=== PATIENT | female | born 1930 | race Caucasian/White ===

== ENCOUNTER 2016-12-27 13:31 | Inpatient (IN) | payer MEDICARE ==
--- NOTE | ~2016-12-27 | EKG ---
PATIENT: ANTONIO FRIEND UNIT #: [id number] Ventricular Rate: 65 BPM Atrial Rate: 65 BPM P-R Interval: 170 ms QRS Duration: 90 ms Q-T Interval: 404 ms QTC Calculation(Bezet): 420 ms P [place]: 43 degrees Calculated R [place]: 31 degrees Calculated T [place]: 48 degrees Diagnosis Line: Normal sinus rhythm Diagnosis Line: Normal ECG Diagnosis Line: When compared with ECG of 23-DEC-2016 09:50, Diagnosis Line: Criteria for Inferior infarct are no longer Diagnosis Line: Present Diagnosis Line: Confirmed by LAKSHMI QUEVEDO MD ([id number]) on 12/28/2016 Diagnosis Line: 7:19:23 AM INTERPRETING MD: SAE MICHELLE
--- NOTE | ~2016-12-27 | OR ---
Unit #: [id number] #: [id number] Patient: ANTONIO FRIEND [id number] [address] [address] [id number] MR#: [id number] NAME: ANTONIO FRIEND ROOM: 468 Date of Procedure: 12/30/2016 Admission Date: 12/27/2016 Surgeon: Franklin Song M.D. : 1930 Attending Physician: Diana Zhang M.D. Primary Care Physician: Ministerio Antoine Jr., M.D. OPERATIVE REPORT PREOPERATIVE DIAGNOSIS Right shoulder rotator cuff arthropathy. POSTOPERATIVE DIAGNOSIS Right shoulder rotator cuff arthropathy. PROCEDURE PERFORMED Right reverse total shoulder arthroplasty. LUMBER SORTER Tristan Segura CFA. ANESTHESIA General endotracheal. COMPLICATIONS None. SPECIMENS None. DRAINS 10-[place] Hemovac. SURGICAL IMPLANTS Jennifer reverse total shoulder arthroplasty system with Palacos R+G cement, size 10 smooth humeral stem, standard trabecular metal baseplate with 2 screws, 36 mm glenosphere, +3 mm offset polyethylene liner. INDICATION FOR PROCEDURE Ms. Friend is a pleasant 86-year-old female with end-stage rotator cuff arthropathy of the right shoulder. She had failed conservative treatment with multiple cortisone injections. She wished to proceed with surgical intervention. It was felt reverse total shoulder arthroplasty provided most relief and return of function. She understood the risks associated with surgery with her age and medical comorbidities. She wished to proceed. Risks, benefits, and alternatives of the surgery were discussed. Informed consent was obtained. Risks include, but not limited to, infection, bleeding, nerve injury, blood clots, risks associated with anesthesia, and possibly . DESCRIPTION OF PROCEDURE Unit #: [id number] #: [id number] Patient: ANTONIO FRIEND On 12/30/2016, the patient was seen in preoperative holding area, where her surgical site was marked. Preoperative antibiotics were received. H and P and consent updated. The patient was taken to the operating room and placed on operative table and provided general anesthesia. She was moved into the beach chair position. All bony prominences were well padded. Right upper extremity was prepped and draped in typical sterile fashion. Time-out performed confirming the correct surgical site and procedure. At this point, a standard deltopectoral approach was performed to the right glenohumeral joint. Significant retraction of the rotator cuff and subscapularis noted. The remainder of it was released off the lesser tuberosity. It was significantly atrophied and retracted. The cephalic vein had been mobilized with the deltoid muscle. The articular cartilage was completely worn down on the humeral head and glenoid. The biceps had already been torn. The shoulder was dislocated. Starting reamer placed down the canal of the humerus. Sequential reaming up to 12 mm performed. Cutting jig placed on the reamer at approximately 20 degrees of retroversion. The humeral head cut was made. Serial broaching performed followed by placement of the trial. Focus was now placed on the glenoid. Retractors placed and the soft tissue debrided around the glenoid. Central pin placed in a 10-degree cephalad direction. Serial reaming performed over this. Next, the base plate was placed after healthy bleeding bone base noted. Two locking screws placed with excellent purchase for security. The Glenosphere was placed and malleted into position. It was noted to be stable and checked circumferentially. Based on the current humerus cut, it was felt to be a little bit tight and 2 more mm was resected off the humerus. At this point, the trial stem was placed again and the shoulder was reduced. Focus was now placed on cementing the final stem. The patient was extremely osteoporotic and felt cementing would provide the most security and prevention of possible fracture with a press-fit stem. Cement was mixed on the back table. Restrictor placed. Canal prepared and thoroughly irrigated. It was suctioned dried. Cement was packed into the canal followed by placement of the stem. Excess cement removed circumferentially around the proximal aspect of the humerus. After approximately 12 minutes, cement had hardened. A 0 mm trial was placed and the shoulder was reduced. It was felt that a 3 mm was more appropriate. The final 3 mm poly insert was placed and stabilized. The shoulder was reduced. It was taken through a full range of motion and noted to be stable. Appropriate tension on the surrounding soft tissues noted. The remainder of the 3 L normal saline containing bacitracin pulsed through the wound. The atrophied soft tissue including the supraspinatus and subscapularis were felt to be under significant tension to be able to repair. They were left alone. A subacromial drain was placed in standard fashion. The deltopectoral groove repaired with 0 Vicryl followed by 2-0 Vicryl for subcutaneous tissues and a running 3-0 Monocryl subcuticular skin stitch. Dermabond, Telfa, Tegaderm placed followed by a sling immobilizer. The patient was subsequently awakened from general anesthesia in stable condition and taken to the PACU postoperatively. POSTOPERATIVE PLAN The patient will be nonweightbearing on the right upper extremity. She can have elbow and wrist motion and pendulums. She will be on Lovenox while in the hospital for DVT prophylaxis. She will be on standard antibiotics. No complications encountered during the surgical procedure. Unit #: [id number] #: [id number] Patient: ANTONIO FRIEND Dictated by.Salva Canchola/emory TD: 12/30/2016 23:45 JOB #: [id number] OPERATIVE REPORT X X PROCEDURE OPERATIVE NOTE
--- NOTE | ~2016-12-27 | HP ---
Unit #: [id number] #: [id number] Patient: ANTONIO FRIEND [id number] [address] [place], [place] [address] [id number] I MR#: [id number] NAME: ANTONIO FRIEND ROOM: 230 Age: 86 Sex: F Admission Date: 12/27/2016 : 1930 Attending Physician: Chauncey Oliveira M.D. Primary Care Physician: Ministerio Antoine Jr., M.D. HISTORY AND PHYSICAL CHIEF COMPLAINT Positive blood cultures. HISTORY OF PRESENT ILLNESS The patient is an 86-year-old female who had a preprocedure screening on the 23 of December for the right shoulder arthroplasty. The patient had an abnormal UA with 3+ leukocyte esterase, positive nitrite and 100 to 200 urine WBC and 4+ urine bacteria with the urine culture positive for the E. coli ESBL. The patient was brought to the hospital for IV antibiotics. The patient's surgery has been canceled for tomorrow and rescheduled for , 12/30/2016. The patient denies any fever, chills, nausea or vomiting. The patient is complaining of back pain and shoulder pain. The patient has a history of hydronephrosis with a stent placed back in last year and is status post removal. The patient denies any urinary complaints. The patient denies any urgency or frequency. The patient denies any recent history of fall or confusion. The patient is hard of hearing and hears only from the left ear and history is obtained by speaking to the patient's son at the bedside. 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 PAST SURGICAL HISTORY Excision of ruptured ovary, hysterectomy, thyroidectomy, bladder repair, cardia cath, laser surgery, left and right cataract extraction, left knee replacement, kidney stone retrieval. SOCIAL HISTORY The patient is accompanied by her son. The patient denies tobacco, illicit drug abuse. The patient drinks vodka and orange juice, one daily. FAMILY HISTORY Lung cancer and breast cancer. ALLERGIES Morphine. CURRENT MEDICATIONS 1. Calcium. 2. Lisinopril. Unit #: [id number] #: [id number] Patient: ANTONIO FRIEND 3. Levothyroxine. 4. Pantoprazole. 5. Lexapro. 6. Hydrocodone. 7. Hydrochlorothiazide. 8. Lipitor. 9. Fiber. REVIEW OF SYSTEMS A 14-point review of systems was performed and only pertinent positives are described above and remaining are negative. PHYSICAL EXAMINATION GENERAL APPEARANCE: The patient is lying on the bed, not in acute distress. VITAL SIGNS: Temperature 98.1. Pulse 71. Respiration 16. Sating 99% at room air. Blood pressure 155/97. HEENT: Head: Atraumatic, normocephalic. Pupils equal, round and reacting to light and accommodation. Moist mucous membranes. LYMPHATIC: No lymphadenopathy. LUNGS: Clear to auscultation bilaterally. HEART: Regular rate and rhythm. ABDOMEN: Soft. Positive bowel sounds. EXTREMITIES: Trace pedal edema without cyanosis or clubbing. NEUROLOGIC: Alert, awake, oriented. No gross focal motor deficit. MUSCULOSKELETAL: Decreased range of motion with pain. BACK: No CVA tenderness. DIAGNOSTIC STUDIES LABORATORY: Data from the is BUN 26, creatinine 0.7, sodium 137, potassium 4, chloride 98, bicarb 32, calcium 9.6, total protein 5.8, albumin 3.9, AST 25, ALT 24, alkaline phosphatase 22. INR is one. WBC 5.7, hemoglobin 14.3, hematocrit 43.2, platelets 142. UA shows 3+ leukocyte esterase, positive nitrite, WBC 100 to 200, urine bacteria 4+, and urine culture is positive for E. coli ESBL. ASSESSMENT 1. ESBL E. coli UTI. 2. Osteoarthritis. 3. Hyperlipidemia. PLAN To admit the patient (1) , continue with IV antibiotics with Merrem and check the blood cultures to rule out sepsis. The patient's surgery has been rescheduled to for right shoulder arthroplasty. Repeat the labs again and further recommendations will follow. Dictated by Slava Santiago TD: 12/27/2016 14:07 JOB #: [id number] Unit #: [id number] #: [id number] Patient: OBERHAUSEN,ANTONIO HISTORY AND PHYSICAL X X HISTORY AND PHYSICAL
--- NOTE | ~2016-12-27 | CR230 ---
[facility] A Service of [facility] & [facility] RADIOLOGY TEXT RESULTS PATIENT: ANTONIO FRIEND LOCATION: [facility] 468-01 : 32 UNIT #: [id number] AGE: [address]: Diana Zhang MD SEX: F ORDER DR: [id number] [facility] [address] [facility] [place], [place] [address] [id number] I MR#: [id number] Acc #: [id number] NAME: ANTONIO FRIEND : 1930 SEX: F STUDY DATE/TIME: 12/30/2016 11:29 UNIT: [facility] ROOM: [facility] STUDY DESCRIPTION: CR Shoulder Min 2 View Rt Attending Physician: Diana Zhang M.D. Ordering Physician: Franklin Song M.D. Primary Care Physician: Ministerio Antoine Jr., M.D. MEDICAL IMAGING REPORT This report is preliminary unless electronic signature is present EXAM Right shoulder 2 views HISTORY Status post right total shoulder arthroplasty. FINDINGS The exam is compared to the previous studies of 12/23 and the patient has undergone a right shoulder arthroplasty. Position and alignment of the prosthetic elements appears as expected. CONCLUSION Satisfactory postop appearance following right total shoulder arthroplasty. Dictated by... Tristan Angelo M.D. THIS IS AN ELECTRONICALLY VERIFIED REPORT Tristan Angelo M.D. at 12/30/2016 4:30 PM JAKE/chinedu TD: 12/30/2016 14:02 JOB #: [id number] MEDICAL IMAGING REPORT COPY
--- NOTE | ~2016-12-27 | DS ---
Unit #: [id number] #: [id number] Patient: ANTONIO FRIEND [id number] [address] [address] [id number] MR#: [id number] NAME: ANTONIO FRIEND ROOM: 468 Age: 86 Sex: F Admission Date: 12/27/2016 : 1930 Discharge Date: 12/31/2016 Attending Physician: Diana Zhang M.D. Primary Care Physician: Ministerio Antoine Jr., M.D. DISCHARGE SUMMARY REVISED REPORRT DIAGNOSIS ON ADMISSION Acute UTI. DIAGNOSES ON DISCHARGE 1. Acute Escherichia coli extended spectrum beta-lactamase urinary tract infection. 2. Right rotator cuff arthropathy status post reverse total shoulder arthroplasty (TSA). 3. Hyperlipidemia. 4. Degenerative joint disease. 5. Chronic low back pain. 6. Overactive bladder. 7. Gastroesophageal reflux disease. 8. Hearing loss. 9. Hyperlipidemia. 10. Osteopenia. 11. Neuropathy. 12. Macular degeneration. CONSULTATIONS Dr. Song in surgical consultation. DIAGNOSTIC STUDIES LABS: The patient's creatinine is 0.6, sodium 141, potassium 4.1. WBC is 4.3, hemoglobin 10.3, platelet count 110. Blood cultures did not reveal any growth so far. Urine culture revealed E-coli ESBL. IMAGING: Right shoulder x-ray revealed satisfactory postop appearance following right total shoulder arthroplasty. HOSPITAL COURSE This 86-year-old patient was admitted to the hospital with UTI. Details are as per admission H and P. Acute E-coli ESBL UTI. The patient was treated with IV Merrem and is afebrile. Blood cultures are negative. Rotator cuff arthropathy. The patient was scheduled as an outpatient for surgery. Dr. Song saw the patient in consultation, and the patient underwent surgery and has tolerated it well. Today, the patient is comfortable, is not in any acute distress. She will go to rehab. Unit #: [id number] #: [id number] Patient: ANTONIO FRIEND PHYSICAL EXAMINATION VITAL SIGNS: Vital signs reveal temperature of 98.1, pulse 59 per minute, respiratory rate 18 per minute and blood pressure 154/54. HEENT: Examination revealed no conjunctival congestion. Sclera is nonicteric. NECK: Neck is supple. Trachea is central. RESPIRATORY: Examination revealed breath sounds equal bilaterally. There are no wheezes or crackles. HEART: Regular rate and rhythm. S1, S2. ABDOMEN: Abdomen is soft, nontender. Bowel sounds are present in all 4 quadrants. SKIN: Skin is warm and dry. CONDITION Stable. ACTIVITIES As tolerated. DISCHARGE MEDICATIONS 1. Tylenol 650 mg p.o. q.6 hours p.r.n. mild pain. 2. Lovenox 40 mg subcu daily for 1 week. 3. Lexapro 5 mg p.o. daily. 4. Senokot-S 1 tablet p.o. daily. 5. Milk of Magnesia 30 mL daily p.r.n. constipation. 6. Hydrochlorothiazide 25 mg p.o. daily. 7. Lipitor 20 mg p.o. q.h.s. 8. Lisinopril 5 mg p.o. daily. 9. Hydrocodone 7.5 mg 1-2 tablets p.o. q.4-6 hours p.r.n. pain. Script was written by Dr. Huang. 10. Protonix 40 mg p.o. daily. 11. Calcium with vitamin D 500 mg p.o. daily. 12. Synthroid 50 mcg p.o. daily. 13. Meropenem 500 mg IV q.8 hours for 1 week. DISPOSITION The patient will be transferred to rehab. NOTE: The plan was discussed in detail with the patient and her son, and they showed complete understanding. Dictated by... Slava Lemus TD: 12/31/2016 10:59 JOB #: [id number] Unit #: [id number] #: [id number] Patient: ANTONIO FRIEND DISCHARGE SUMMARY X Diana Zhang MD DISCHARGE SUMMARY
[~2016-12-27 13:31] MED LIST: ACTONEL PO; AFRIN NASAL SPR15 ML; ANTI-DIARRHEAL2 M1 PO; APAP325 M2 PO; CALCIUM 600 + D1 TAB PO; CALTRATE 600+D PO; CHOLEST OFF; CIPRO PO; CIPROFLOXACIN500 M1 PO; CLARITIN10 MG PO; COLACE PO; DOCUSATE SODIU100 MG PO; DOXYCYCLINE PO; FIBER625 M1 PO; FLAGYL PO; GENTLE LAXATIVE10 MG PR; HYDROCHLOROTHIA25 MG PO; HYDROCODON-ACE1 EAC7 PO; KEFLEX250 M1 PO; LEVAQUIN PO; LEVOTHYROXINE50 MCG PO; LEVOXYL75 MC1 PO; LEXAPRO5 MG PO; LIPITOR PO; LIPITOR20 MG PO; LIPITOR40 MG PO; LISINOPRIL5 MG PO; LORTAB 10-5001 EACH PO; MIRALAX17 GM PO; MOBIC7.5 MG/5 M PO; MULTI-DAY VITAM1 TAB PO; NEXIUM PO; NORCO 5/325 TAB1 TAB PO; NORVASC PO; OCUVITE TABLET1 TA1 PO; OCUVITE TABLET1 TAB PO; ONDANSETRON HCL4 M1 PO; ONDANSETRON4 MG/TAB PO; OYSTER CALCIUM500 MG PO; PANTOPRAZOLE SO40 MG PO; PRESERVISION A1 EAC3 PO; REFRESH5 ML OU; SENEXON-S TABL1 EACH PO; SYNTHROID PO; SYSTANE GEL EYE10 ML OU; TUSSIN MAX15 MG/5 M1 PO; VITA EYES PO; VOLTAREN100 GM TOP; VOLTAREN100 GM TP; ZOFRAN8 MG PO
[2016-12-27] MEDS ORDERED: PANTOPRAZOLE SO40 MG PO (13:34)
[2016-12-27] MEDS ORDERED: PRESERVISION A1 EAC1 PO (13:35)
[2016-12-27] MEDS ORDERED: FIBER625 M1 PO (13:36)
[2016-12-27] MEDS ORDERED: OCUVITE TABLET1 TA1 PO (13:36)
[2016-12-27] MEDS ORDERED: VOLTAREN100 GM TOP (13:40)
[2016-12-27 14:43] LABS: HEMATOCRIT 41.9 % (35.0-45.0); HEMOGLOBIN 13.9 gm/dL (12.0-16.0); MEAN CELL VOLUME 99.7 FL (83-96); MEAN CORPUSCULAR HEMOGLOBIN 33.1 PG (28-34); MEAN CORPUSCULAR HGB CONC 33.3 g/dL (30-36); MEAN PLATELET VOLUME 7.7 FL (6.5-11.5); RED BLOOD COUNT 4.21 X10e (3.90-5.30); RED CELL DISTRIBUTION WIDTH 12.8 % (11.0-15.5); WHITE BLOOD COUNT 4.8 X10e3 (4.0-10.5)
[2016-12-27 15:10] LABS: BLOOD UREA NITROGEN 19 mg/dL (9-23); BUN/CREATININE RATIO 31.66; CALCIUM SERUM 8.9 mg/dL (8.4-10.2); CARBON DIOXIDE 29 mmol/L (22-31); CHLORIDE 101 mmol/L (100-111); CREATININE SERUM 0.6 mg/dL (0.6-1.4); GLOM FILT RATE Estimated ABOVE60 mL/min (>60); GLUCOSE FASTING 94 mg/dL (70-110); POTASSIUM 3.7 mmol/L (3.5-5.1); SODIUM 137 mmol/L (135-145)
[2016-12-28 05:22] LABS: HEMATOCRIT 38.1 % (35.0-45.0); HEMOGLOBIN 12.7 gm/dL (12.0-16.0); MEAN CELL VOLUME 100.2 FL (83-96); MEAN CORPUSCULAR HEMOGLOBIN 33.5 PG (28-34); MEAN CORPUSCULAR HGB CONC 33.4 g/dL (30-36); MEAN PLATELET VOLUME 7.6 FL (6.5-11.5); RED BLOOD COUNT 3.81 X10e (3.90-5.30); RED CELL DISTRIBUTION WIDTH 12.9 % (11.0-15.5); WHITE BLOOD COUNT 3.7 X10e3 (4.0-10.5)
[2016-12-28 06:06] LABS: BLOOD UREA NITROGEN 18 mg/dL (9-23); CALCIUM SERUM 8.3 mg/dL (8.4-10.2); CARBON DIOXIDE 28 mmol/L (22-31); CHLORIDE 104 mmol/L (100-111); CREATININE SERUM 0.6 mg/dL (0.6-1.4); GLOM FILT RATE Estimated ABOVE60 mL/min (>60); GLUCOSE FASTING 92 mg/dL (70-110); POTASSIUM 3.8 mmol/L (3.5-5.1); SODIUM 137 mmol/L (135-145)
[2016-12-29 06:36] LABS: HEMATOCRIT 39.4 % (35.0-45.0); HEMOGLOBIN 13.3 gm/dL (12.0-16.0); MEAN CELL VOLUME 100.2 FL (83-96); MEAN CORPUSCULAR HEMOGLOBIN 33.7 PG (28-34); MEAN CORPUSCULAR HGB CONC 33.7 g/dL (30-36); MEAN PLATELET VOLUME 7.6 FL (6.5-11.5); RED BLOOD COUNT 3.93 X10e (3.90-5.30); WHITE BLOOD COUNT 3.4 X10e3 (4.0-10.5)
[2016-12-29 10:00] LABS: BLOOD UREA NITROGEN 14 mg/dL (9-23); CARBON DIOXIDE 27 mmol/L (22-31); CHLORIDE 103 mmol/L (100-111); CREATININE SERUM 0.7 mg/dL (0.6-1.4); GLOM FILT RATE Estimated ABOVE60 mL/min (>60); GLUCOSE FASTING 160 mg/dL (70-110); POTASSIUM 3.5 mmol/L (3.5-5.1); SODIUM 141 mmol/L (135-145)
[2016-12-29] MEDS ORDERED: [UNRECOGNIZED DRUG - OTHER] PO (15:58)
[2016-12-30 03:04] LABS: HEMATOCRIT 38.5 % (35.0-45.0); HEMOGLOBIN 12.7 gm/dL (12.0-16.0); MEAN CELL VOLUME 100.1 FL (83-96); MEAN CORPUSCULAR HGB CONC 32.9 g/dL (30-36); MEAN PLATELET VOLUME 7.2 FL (6.5-11.5); RED BLOOD COUNT 3.84 X10e (3.90-5.30); RED CELL DISTRIBUTION WIDTH 12.9 % (11.0-15.5); WHITE BLOOD COUNT 3.9 X10e3 (4.0-10.5)
[2016-12-30 03:21] LABS: BLOOD UREA NITROGEN 21 mg/dL (9-23); CALCIUM SERUM 8.1 mg/dL (8.4-10.2); CARBON DIOXIDE 25 mmol/L (22-31); CHLORIDE 107 mmol/L (100-111); CREATININE SERUM 0.7 mg/dL (0.6-1.4); GLOM FILT RATE Estimated ABOVE60 mL/min (>60); GLUCOSE FASTING 97 mg/dL (70-110); POTASSIUM 3.9 mmol/L (3.5-5.1); SODIUM 135 mmol/L (135-145)
[2016-12-31 04:07] LABS: HEMATOCRIT 30.4 % (35.0-45.0); HEMOGLOBIN 10.3 gm/dL (12.0-16.0); MEAN CELL VOLUME 99.1 FL (83-96); MEAN CORPUSCULAR HEMOGLOBIN 33.6 PG (28-34); MEAN CORPUSCULAR HGB CONC 33.9 g/dL (30-36); MEAN PLATELET VOLUME 7.1 FL (6.5-11.5); RED BLOOD COUNT 3.07 X10e (3.90-5.30); WHITE BLOOD COUNT 4.3 X10e3 (4.0-10.5)
[2016-12-31 04:38] LABS: BLOOD UREA NITROGEN 15 mg/dL (9-23); CALCIUM SERUM 8.8 mg/dL (8.4-10.2); CARBON DIOXIDE 30 mmol/L (22-31); CHLORIDE 105 mmol/L (100-111); CREATININE SERUM 0.6 mg/dL (0.6-1.4); GLOM FILT RATE Estimated ABOVE60 mL/min (>60); GLUCOSE FASTING 117 mg/dL (70-110); POTASSIUM 4.1 mmol/L (3.5-5.1); SODIUM 141 mmol/L (135-145)
== END 2016-12-31 16:15 | DRG 983 ==
LOC: C2A 13:31 → C4C 12-29 07:39
PROVIDERS: Internal Medicine; Orthopaedic Surgery
PROC: 0RRJ00Z Replacement of Right Shoulder Joint with Reverse Ball and Socket Synthetic Substitute, Open Approach (ICD-10-PCS; principal; 2016-12-30 08:30)
DX: N39.0 Urinary tract infection, site not specified (principal); G62.9 Polyneuropathy, unspecified; B96.20 Unspecified Escherichia coli [E. coli] as the cause of diseases classified elsewhere; Z16.12 Extended spectrum beta lactamase (ESBL) resistance; M19.011 Primary osteoarthritis, right shoulder; E78.5 Hyperlipidemia, unspecified; M54.5 Low back pain; K21.9 Gastro-esophageal reflux disease without esophagitis; N32.81 Overactive bladder; H91.90 Unspecified hearing loss, unspecified ear; H91.93 Unspecified hearing loss, bilateral; M85.80 Other specified disorders of bone density and structure, unspecified site; H35.30 Unspecified macular degeneration; I25.10 Atherosclerotic heart disease of native coronary artery without angina pectoris
CPT/HCPCS: 73030; 80048; 85027; 87040; 93005; 94760; 97110; 97116; 97163; 97530; C1713; C1776; G8978-GP; G8979-GP; G8980-GP; J0330; J1170; J1650; J2185; J2405; J2710; J2795; J3010; J3370

== ENCOUNTER → 2017-05-31 | Outpatient (CLI) | payer MEDICARE ==
[~2017-05-31] MED LIST changes: +PRESERVISION A1 EAC1 PO; +[UNRECOGNIZED DRUG - OTHER] PO
--- NOTE | ~2017-05-31 | CR213 ---
[facility] A Service [facility] RADIOLOGY TEXT RESULTS PATIENT: ANTONIO FRIEND LOCATION: [facility] : 32 UNIT #: [id number] AGE: [address]: KATHY ALFONSO APRN SEX: F ORDER DR: [id number] [place] [id number] MR#: [id number] Acc #: [id number] NAME: ANTONIO FRIEND : 1930 SEX: F STUDY DATE/TIME: 05/31/2017 11:00 UNIT: [facility] ROOM: STUDY DESCRIPTION: CR Ribs Unilateral 2 View Rt Attending Physician: Kathy Alfonso Aprn Referring Physician: Kathy Alfonso Aprn Ordering Physician: Kathy Alfonso Aprn Primary Care Physician: Kathy Alfonso Aprn MEDICAL IMAGING REPORT This report is preliminary unless electronic signature is present. EXAM Right ribs. HISTORY Rib pain after falling yesterday while trying to get into bed. COMPARISON 12/23/2016 TECHNIQUE Six views of the ribs were obtained. FINDINGS A shoulder prosthesis is seen on the right. There is no evidence of dislocation of the prosthesis. No displaced rib fractures are noted. There is no evidence of pleural thickening or focal bone destruction. No pneumothorax. IMPRESSION Negative rib series. Dictated by... Christian Fairchild M.D. THIS IS AN ELECTRONICALLY VERIFIED REPORT Christian Fairchild M.D. at 06/01/2017 6:59 AM RLF/psc TD: 05/31/2017 22:13 JOB #: [id number] [facility] A Service [facility] RADIOLOGY TEXT RESULTS PATIENT: ANTONIO FRIEND LOCATION: [facility] : 32 UNIT #: [id number] AGE: [address]: KATHY ALFONSO APRN SEX: F ORDER DR: MEDICAL IMAGING REPORT Page 1 of 1
== END | disposition home or self-care (01) ==
LOC: SRAD 10:54
DX: R07.81 Pleurodynia (principal)
CPT/HCPCS: 71100